=== PATIENT | female | born 1990 | race Caucasian/White ===

== ENCOUNTER 2020-11-13 21:45 | Emergency (ER) | payer OTHER ==
[~2020-11-13 21:45] MED LIST: BENTYL10 MG PO; BUSPAR5 MG PO; CIPRO500 MG PO; FEOSOL325 MG PO; PERCOCET 5/3251 TAB PO; PHENERGAN12.5 M1 PO; PROZAC20 MG PO; ZOFRAN ODT4 MG PO/SL
[2020-11-13 23:38] LABS: BASOPHIL 0.3 % (0-2); EOSINOPHIL 1.2 % (0-5); HCT 40.1 % (37.0-47.0); HGB 13.3 g/dl (12.5-16.0); LYMPHOCYTE 9.2 % (15-48); MCH 30.7 pg (25.0-31.0); MCHC 33.2 g/dL (32.0-36.0); MCV 92.6 fL (78.0-100.0); MONOCYTE 6.1 % (0-12); MPV 9.1 fL (6.0-9.5); NEUTROPHIL 82.8 % (41-80); NRBC 0; PLT 330 K/uL (150-400); RBC 4.33 M/uL (4.20-5.40); RDW 13.6 % (11.5-14.0); WBC 16.7 K/uL (4.0-10.5)
[2020-11-13 23:56] LABS: ALBUMIN 3.5 g/dL (3.4-5.0); BILIRUBIN - TOTAL 0.3 mg/dL (0.2-1.0); BUN/CREAT RATIO (CALC) 20.4 RATIO; CREATININE 0.54 mg/dL (0.51-0.95); GLOBULIN (CALCULATION) 3.4 g/dL; TOTAL PROTEIN 6.9 g/dL (6.4-8.2)
[2020-11-13 23:57] LABS: POTASSIUM 3.2 mmol/L (3.5-5.1)
[2020-11-14 02:02] LABS: BILIRUBIN NEGATIVE (NEGATIVE); BLOOD NEGATIVE Ery/uL (NEGATIVE); CLARITY CLEAR (CLEAR); COLOR YELLOW (YELLOW); GLUCOSE (U) NORMAL (NORMAL); LEUKOCYTES NEGATIVE Leu/uL (NEGATIVE); NITRITE NEGATIVE (NEGATIVE); PROTEIN NEGATIVE (NEGATIVE); SPECIFIC GRAVITY 1.015 (1.001-1.030); UROBILINOGEN 0.2 mg/dL (0.2-1.0)
[2020-11-14] MEDS ORDERED: PHENERGAN12.5 M1 PO (03:49)
[2020-11-14] MEDS ORDERED: PERCOCET 5-3251 EACH PO (03:49)
[2020-11-16 14:09] LABS: CHLAMYDIA TRACHOMATIS, NAA Negative (Negative); NEISSERIA GONORRHOEAE, NAA Negative (Negative)
== END 2020-11-14 04:05 | disposition home or self-care (01) ==
LOC: FER 21:45
PROVIDERS: Emergency Medicine Emergency Medical Services; Nurse Practitioner Family
DX: O20.0 Threatened abortion (principal); O99.331 Smoking (tobacco) complicating pregnancy, first trimester; F17.200 Nicotine dependence, unspecified, uncomplicated; Z91.041 Radiographic dye allergy status; Z98.890 Other specified postprocedural states; Z3A.00 Weeks of gestation of pregnancy not specified
CPT/HCPCS: 36415; 76801; 80053; 81003; 84702; 85025; 87210; 87491; 87591

== ENCOUNTER 2020-12-19 03:54 | Emergency (ER) | payer OTHER ==
[~2020-12-19 03:54] MED LIST changes: +PERCOCET 5-3251 EACH PO
[2020-12-19 04:36] LABS: BASOPHIL 0.7 % (0-2); EOSINOPHIL 2.9 % (0-5); HCT 41.7 % (37.0-47.0); HGB 14.1 g/dl (12.5-16.0); LYMPHOCYTE 38.4 % (15-48); MCHC 33.8 g/dL (32.0-36.0); MCV 91.6 fL (78.0-100.0); MPV 9.5 fL (6.0-9.5); NEUTROPHIL 46.5 % (41-80); NRBC 0; PLT 375 K/uL (150-400); RBC 4.55 M/uL (4.20-5.40); RDW 13.2 % (11.5-14.0); WBC 8.2 K/uL (4.0-10.5)
[2020-12-19 05:02] LABS: ALBUMIN 3.5 g/dL (3.4-5.0); BILIRUBIN - TOTAL 0.1 mg/dL (0.2-1.0); BUN/CREAT RATIO (CALC) 12.3 RATIO; CREATININE 0.57 mg/dL (0.51-0.95); GLOBULIN (CALCULATION) 3.6 g/dL; POTASSIUM 3.5 mmol/L (3.5-5.1); TOTAL PROTEIN 7.1 g/dL (6.4-8.2)
[2020-12-19] MEDS ORDERED: ZOFRAN4 M1 PO (09:38)
== END 2020-12-19 10:39 | disposition home or self-care (01) ==
LOC: FER 03:54
PROVIDERS: Emergency Medicine
DX: F41.9 Anxiety disorder, unspecified (principal); F10.129 Alcohol abuse with intoxication, unspecified; I10 Essential (primary) hypertension; F17.210 Nicotine dependence, cigarettes, uncomplicated; Y90.8 Blood alcohol level of 240 mg/100 ml or more
CPT/HCPCS: 36415; 80053; 84703; 85025; 99283; G0480; J3410